=== PATIENT | male | born 1990 | race African-American/Black ===

== ENCOUNTER 2018-05-21 18:27 | Emergency (ER) | payer OTHER ==
[~2018-05-21] VITALS: Ht 170.2 cm; Wt 99.8 kg
[2018-05-21 19:01] LABS: ABSOLUTE BASOPHIL COUNT 0 /CUMM (0.0-0.2); ABSOLUTE EOSINOPHIL COUNT 0.2 /CUMM (0.0-0.7); ABSOLUTE GRANULOCYTE CT 6.6 /CUMM (1.4-6.5); ABSOLUTE LYMPH COUNT 1.4 /CUMM (1.2-3.4); ABSOLUTE MONOCYTE COUNT 0.6 /CUMM (0.10-0.60); BASOPHIL % 0.2 % (0.0-2.0); EOSINOPHIL % 2.4 % (0-5); GRANULOCYTE % 74.6 % (42.2-75.2); HEMATOCRIT 42.3 % (42-52); MEAN CORPUSCULAR HGB 28.1 PG (27.0-31.0); MEAN CORPUSCULAR HGB CONC 33.9 G/DL (33.0-37.0); MEAN CORPUSCULAR VOLUME 82.9 FL (80.0-94.0); MEAN PLATELET VOLUME 9.8 FL (7.4-10.4); PLATELET COUNT 202 /CUMM (130-400); RBC DISTRIBUTION WIDTH 14.2 % (11.5-14.5); WHITE BLOOD CELL COUNT 8.8 /CUMM (4.8-10.8)
--- NOTE | 2018-05-21 19:13 | ED GENERAL ADULT ---
History of Present Illness General Chief Complaint: General Adult Stated Complaint: IDA FEELS LIKE HE IS GOING TO HAVE SEIZURE Source: patient Exam Limitations: no limitations Vital Signs & Intake/Output Vital Signs & Intake/Output Vital Signs Date Time Temp Pulse Resp B/P B/P Pulse O2 O2 Flow FiO2 Mean Ox Delivery Rate 05/21 2100 58 18 124/77 100 Room Air 05/21 1834 Room Air 05/21 1833 97.8 67 18 124/77 98 Room Air ED Intake and Output 05/22 0000 05/21 1200 Intake Total Output Total Balance Patient 220 lb Weight Weight Estimated Measurement Method Triage Note: PT IDA FROM HOME C/O "I FEEL LIKE I'M GOING TO HAVE A SEIZURE". PT REPORTS FEELING "WEAK ALL OVER BEFORE I HAVE A SEIZURE". PT REPORTS HE DOES NOT TAKE MEDICATION FOR SEIZUES AND DOES NOT HAVE A NEUROLOGIST. PT IS UNABLE TO REPORT WHAT TYPE OF SEIZURES HE HAS OR WHAT HAPPENS DURING SEIZURES. Triage Nurses Notes Reviewed? yes Onset: Abrupt Duration: day(s): (1), better, continues in ED Timing: remote history Injury Environment: home Severity: moderate, severe Severity Numbers: 5 No Modifying Factors: none HPI: 27-year-old male past medical history of possible seizure disorder presents for evaluation of feeling his could have a seizure. Patient reports that since he was 9 years had episodes of what he thinks is a seizure. He is unsure exactly what happens during these episodes. But he states it happened about twice a year. He reports that before the episode he will get weak and dizzy have a headache. This occurred today he felt very dizzy very weak according to his family member he was unable to ambulate. He reports a left-sided headache he reports that his weakness has improved but he still has some dizziness and left- sided headache. Denies any chest pain or shortness of breath. No syncope no nausea vomiting sweats or chills. He reports he was at [facility] [place] previously and was actually intubated during one of these episodes but he does not see a neurologist he never followed up he is not taking seizure medicines. (Dequan DALAL,Tremaine) Allergies Coded Allergies: No Known Allergies (05/21/18) Reconcile Medications Sumatriptan Succinate (Imitrex) 50 MG TABLET 1 TAB PO TID PRN MIGRAINE HEADACE (Derek BUSTOS,Heron R.) Past History Travel History Traveled to [place] past 21 day No Medical History Any Pertinent Medical History? see below for history Surgical History Surgical History: non-contributory Psychosocial History What is your primary language Spanish Tobacco Use: Never used Family History Hx Contributory? No (Tremaine Sheehan) Review of Systems Review of Systems Constitutional: Reports: weakness. EENTM: Reports: no symptoms. Respiratory: Reports: no symptoms. Cardiovascular: Reports: no symptoms. GI: Reports: no symptoms. Genitourinary: Reports: no symptoms. Musculoskeletal: Reports: no symptoms. Skin: Reports: no symptoms. Neurological/Psychological: Reports: see HPI (dizzy lightheaded), headache. Hematologic/Endocrine: Reports: no symptoms. Immunologic/Allergic: Reports: no symptoms. All Other Systems: Reviewed and Negative (Tremaine Sheehan) Physical Exam Physical Exam General Appearance: well developed/nourished, no apparent distress, alert, awake Head: atraumatic, normal appearance Eyes: Bilateral: normal appearance, PERRL, EOMI. Ears, Nose, Throat: normal pharynx, normal ENT inspection, hearing grossly normal Neck: normal inspection, supple, full range of motion Respiratory: normal breath sounds, chest non-tender, no respiratory distress, lungs clear Cardiovascular: regular rate/rhythm, normal peripheral pulses Peripheral Pulses: 2+ radial (R), 2+ radial (L) Gastrointestinal: soft, non-tender Back: normal inspection, normal range of motion Extremities: normal inspection, normal range of motion, no edema Neurologic/Psych: no motor/sensory deficits, awake, alert, oriented x 3, normal gait Skin: intact, normal color, warm/dry Lymphatic: no anterior cervical abdulaziz Core Measures ACS in differential dx? No CVA/TIA Diagnosis: No Sepsis Present: No Sepsis Focused Exam Completed? No (Tremaine Sheehan) Progress Differential Diagnoses I considered the following diagnoses in my evaluation of the patient: [Seizure disorder, electrolyte under malady, drug intoxication, syncopal episode, dysrhythmia, dehydration] Plan of Care: Orders Procedure Date/time Status Add-on Test (ER Only) 05/21 1923 Active EKG 05/21 185 Active TROPONIN LEVEL 05/21 185 Complete URINE DRUG SCREEN FOR ER ONLY 05/21 1837 Complete URINALYSIS 05/21 183 Complete MAGNESIUM 05/21 183 Complete COMPREHENSIVE METABOLIC PANEL 05/21 1837 Complete CBC WITHOUT DIFFERENTIAL 05/21 1837 Complete Laboratory Tests 05/21/18 2056: Urine Opiates Screen < 100, Methadone Screen < 40, Barbiturate Screen < 60, Ur Phencyclidine Scrn < 6.00, Amphetamines Screen < 100, U Benzodiazepines Scrn < 85, Urine Cocaine Screen < 50, Urine Cannabis Screen < 5.00, Urine Color YEL, Urine Clarity CLEAR, Urine pH 6.0, Ur Specific [place] 1.010, Urine Protein NEG, Urine Ketones NEG, Urine Nitrite NEG, Urine Bilirubin NEG, Urine Urobilinogen 0.2, Ur Leukocyte Esterase NEG, Ur Microscopic EXAM NOT REQUIRED, Urine Hemoglobin NEG, Urine Glucose NEG 05/21/18 1850: Anion Gap 10, Estimated GFR > 60, BUN/Creatinine Ratio 13.6, Glucose 97, Calcium 9.5, Magnesium 2.0, Total Bilirubin 0.3, AST 36, ALT 45, Alkaline Phosphatase 73 , Troponin I < 0.01, Total Protein 7.3, Albumin 4.3, Globulin 3.0, Albumin/ Globulin Ratio 1.4, CBC w Diff NO MAN DIFF REQ, RBC 5.10, MCV 82.9, MCH 28.1, MCHC 33.9, RDW 14.2, MPV 9.8, Gran % 74.6, Lymphocytes % 16.2 L, Monocytes % 6.6, Eosinophils % 2.4, Basophils % 0.2, Absolute Granulocytes 6.6 H, Absolute Lymphocytes 1.4, Absolute Monocytes 0.6, Absolute Eosinophils 0.2, Absolute Basophils 0 Patient is a reporting that he feels like he's having a seizure. He's never actually been diagnosed with a seizure disorder does not take seizure meds Never seen by neurology. Labs ordered patient will get a CT scan EKG. Tylenol order for headaches. pt signed out to dr oscar pending labs ct scan. Initial ED EKG: none Hand-Off Endorsed To: Derek BUSTOS,Heron Conde Endorsed Time: 1923 Pending: CT, EKG, labs (Tremaine Sheehan) Diagnostic Imaging: Viewed by Me: CT Scan. Discussed w/RAD: CT Scan. Radiology Impression: PATIENT: МАРИНА ABARCA PRESENT AGE: 27 PATIENT ACCOUNT NO: [id number] : 88 LOCATION: [facility] ORDERING PHYSICIAN: Tremaine Black PA SERVICE DATE: 05/21/18 EXAM TYPE: CAT - CT HEAD WO IV CONTRAST EXAMINATION: CT HEAD WITHOUT CONTRAST CLINICAL INFORMATION: Seizure versus syncope. COMPARISON: None TECHNIQUE: Contiguous axial imaging was performed from the skull base to vertex without intravenous administration of contrast. DLP: 613.68 mGy-cm FINDINGS: There is no evidence of acute intracranial hemorrhage or territorial infarction. No abnormal mass effect or midline shift is seen. Musa to white matter differentiation is well preserved. No extra-axial fluid collections are identified. The ventricles are normal in size. There is no abnormal attenuation within the brain parenchyma. The osseous structures and soft tissues are normal. The mastoid air cells and visualized portions of the paranasal sinuses are well aerated. IMPRESSION: No acute intracranial pathology. Essentially unremarkable examination. DICTATED BY: Salvador Castorena MD DATE/TIME DICTATED:05/21/181944 CONSERVATION OFFICER:MIRANDA DATE/TIME TRANSCRIBED:05/21/181944 CONFIDENTIAL, DO NOT COPY WITHOUT APPROPRIATE AUTHORIZATION. <Electronically signed in Other Vendor System> SIGNED BY: Salvador Castorena MD 05/21/181949 (Derek BUSTOS,Heron Conde) Departure Departure Disposition: STILL A PATIENT Condition: Stable Departure Forms: Customer Survey General Discharge Information (Tremaine Sheehan) Departure Clinical Impression Primary Impression: Weakness Secondary Impressions: Dizziness, Migraine headache Prescriptions: Current Visit Scripts Sumatriptan Succinate (Imitrex) 1 TAB PO TID PRN MIGRAINE HEADACE #9 TAB Comments 05/21/18, 22:11... benign evaluation at present, negative head ct, benign labs... pt's symptoms are most consistent with migraine headache. Wrote rx for imitrex and referred pt to neurologist. Close follow up advised. (Derek BUSTOS,Heron Conde) Critical Care Note Critical Care Note Critical Care Time: non-applicable (Tremaine Sheehan) ED Attending Observation Initial Observation Note: I have seen and personally examined МАРИНА ABARCA on 05/21/18 at 1923. I agree with the current emergency department documentation. The disposition (admission or discharge) is uncertain at this time, he needs a period of observation for the following reason(s): The ED Nurse caring for this patient has been personally informed as to what the patient is being observed for. (Dequan DALAL,Tremaine)
--- NOTE | 2018-05-21 19:50 | CT SCAN REPORT ---
EXAMINATION: CT HEAD WITHOUT CONTRAST CLINICAL INFORMATION: Seizure versus syncope. COMPARISON: None TECHNIQUE: Contiguous axial imaging was performed from the skull base to vertex without intravenous administration of contrast. DLP: 613.68 mGy-cm FINDINGS: There is no evidence of acute intracranial hemorrhage or territorial infarction. No abnormal mass effect or midline shift is seen. Musa to white matter differentiation is well preserved. No extra-axial fluid collections are identified. The ventricles are normal in size. There is no abnormal attenuation within the brain parenchyma. The osseous structures and soft tissues are normal. The mastoid air cells and visualized portions of the paranasal sinuses are well aerated. IMPRESSION: No acute intracranial pathology. Essentially unremarkable examination.
[2018-05-21 21:00] VITALS: BP 124/77
[2018-05-21] MEDS ORDERED: IMITREX50 M1 PO (22:10)
== END 2018-05-21 22:20 | disposition still patient (30) ==
LOC: ERH 18:27
PROVIDERS: Physician Assistant Medical
DX: R53.1 Weakness (principal); R42 Dizziness and giddiness; G43.909 Migraine, unspecified, not intractable, without status migrainosus
CPT/HCPCS: 80307; 81003; 96374; J0131